=== PATIENT | male | born 1955 | race Caucasian/White ===

== ENCOUNTER 2017-03-22 12:53 | Inpatient (IN) | payer BC ==
--- NOTE | ~2017-03-22 | DS ---
Discharge Summary [facility] [address] [place]. [address] NAME: MELCHOR AVALOS : 55 STATUS : DIS IN PAT#: [id number] AGE: 61 ADM/REG DATE : 03/22/17 MR#: [id number] REPORT SERV DATE: 04/02/17 DICTATED BY: OMAYRA VILLALOBOS DATE: 04/01/17 REPORT STATUS : Draft TRANSCRIBED BY: MARYA DATE: 04/01/17 Data Collection from hospitalization DISCHARGE DIAGNOSES: 1. Cholecystitis. 2. Cholelithiasis. 3. Probable choledocholithiasis. 4. History of coronary artery disease. 5. Hypertension. 6. Gastroesophageal reflux disease. CONSULTATIONS: Dr. Klaus Montano. PROCEDURES PERFORMED: 1. CT of the abdomen and pelvis with and without contrast, 03/22/2017. 2. Laparoscopic cholecystectomy with intraoperative cholangiogram 03/23/2017. 3. ERCP 03/24/2017. 4. MRI of the abdomen without contrast, 03/25/2017. PATHOLOGY: Gallbladder cholecystectomy, diffuse acalculous lymphoplasmacytic chronic cholecystitis. MEDICATIONS: Aspirin 81 mg at bedtime, Tenormin 25 mg at bedtime, Prilosec 20 mg at bedtime, Pravachol 80 mg at bedtime, Artificial Tears one drop as needed, Gas-X 80 mg as needed. CONDITION AT DISCHARGE: Upon discharge, he did appear to be doing well and had no complaints. DISPOSITION: He had been discharged home to continue a clear liquid diet with activity as tolerated. He was to follow up with Dr. Jordan Naqvi as needed. Follow up with Dr. Onesimo Vitale in 7-10 days and follow up with myself in one week. HOSPITAL COURSE: This 61-year-old male had a 1 or 2 month history of bloating after eating. This had not really gotten much better, he stated that he had an acute episode of pain 2 days prior to admission with pain all across the lower part of his chest, upper part of his abdomen into his back, this resolved after 10 or 15 minutes, but he continued to have bloating, therefore he had presented to the emergency department to be evaluated. He was worked up and found to have notably elevated bilirubin at 3.3, as well as mildly elevated LFTs with a CT scan demonstrating stones in the gallbladder with some gallbladder wall thickening. In speaking with the patient, he really denied any pain, nausea, or vomiting, complaining mainly of this bloating that he speaks of. He lost approximately 7 pounds over the last two months as he had not been eating much. He also complained of dark coloration of his urine over the past 3 days. He denied any other complaints and was admitted for further evaluation and treatment. Upon admission to the hospital, he had been placed on an n.p.o. diet after midnight. He was begun on morphine at 2 mg IV every 4 hours as needed, Zofran 4 mg IV every 4 hours as needed, Zosyn 3.375 mg IV every 6 hours, heparin 5000 units subcutaneously every 8 hours. He had also been placed on IV fluids with normal saline at 50 mL/h. He did undergo a CT of the abdomen and pelvis with and without contrast on the day of Discharge [address] [place]. [address] NAME: MELCHOR AVALOS : 55 STATUS : DIS IN PAT#: [id number] AGE: 61 ADM/REG DATE : 03/22/17 MR#: [id number] REPORT SERV DATE: 04/02/17 DICTATED BY: OMAYRA VILLALOBOS DATE: 04/01/17 REPORT STATUS : Draft TRANSCRIBED BY: MARYA DATE: 04/01/17 admission. Following the day of admission, he had been taken to the operating room where he did undergo the above cholecystectomy. He had tolerated this well and was transferred to the recovery room. On postop day #1, he had been evaluated by Dr. Klaus Montano as there was concern for common bile duct stones and he discussed ERCP with the patient, the patient was agreeable with this, he did undergo the above ERCP later that same day. He tolerated this well and was transferred to the recovery room. On postop day #2, he did appear to be doing well and had no significant abdominal pain noted. It was, however, noted that he had failed the ERCP secondary to the ampulla being entirely within a diverticulum and we were unable to reach this with the scope and cannula, and was therefore undergo an MRCP and if this was positive for common bile duct stone, then he was to either undergo surgical common bile duct exploration or IR stone removal, this had been discussed with the patient, he was in agreement with this. His bilirubin was noted to be down to 1.6. He did undergo the above MRI of the abdomen, he had tolerated this well. On 03/26, he had no complaints, was afebrile, his bilirubin was at 1.3, alkaline phosphatase 147, AST 23. He did continue in stable condition and had no new complaints noted. Due to his stable condition, he was then discharged with the above instructions. Information collected by: Naeem Johnson. I submit the above information as my discharge summary. DERRICK/MARYA Omayra Villalobos M.D. / [id number] CC: MD MARRY Elena VINCENT C William M. Cooney, MD
--- NOTE | ~2017-03-22 | OP ---
Record Of Operation [facility] [address] [place]. [address] NAME: MELCHOR AVALOS : 55 STATUS : ADM IN [facility]#: [id number] AGE: 61 ADM/REG DATE : 03/22/17 MR#: [id number] REPORT SERV DATE: 03/23/17 DICTATED BY: OMAYRA CHRISTIE DATE: 03/23/17 REPORT STATUS : Draft TRANSCRIBED BY: MODL DATE: 03/23/17 DATE OF PROCEDURE: 03/23/2017 PREOPERATIVE DIAGNOSIS: Cholecystitis and cholelithiasis. POSTOPERATIVE DIAGNOSIS: Cholecystitis and cholelithiasis and probable choledocholithiasis. FINDINGS: The patient had an inflamed gallbladder, very thin walled and very inflamed. Operative cholangiogram showed initially no flow into the duodenum. The catheter was then threaded and then a second operative cholangiogram did show some flow of contrast in the duodenal. SUMMARY: After adequate general anesthesia, prep and drape, a supraumbilical incision was made, carried down the peritoneal cavity, under direct vision, a blunt port was placed. Abdomen insufflated. High-flow CO2 and the camera inserted. The previously noted findings were noted. Second, third, and fourth trocars were placed in the epigastric area and midclavicular line and right anterior axillary line. The lateral two ports were used to grasp the gallbladder. The gallbladder was noted to be very thin walled and distended. There was some leakage of bile. This was suctioned out. The cystic duct and cystic artery were dissected free from the surrounding tissue. The patient was noted to have a very long cystic duct. Two clips placed proximally, one distally on the cystic artery. A clip was placed distally on the cystic duct. The junction of the gallbladder and the cystic duct was identified. Arrow cholangiogram catheter was attempted to be placed. This was unsuccessful. This was then clipped more inferior and a second small incision made in the cystic duct. Catheter was placed in the cystic duct. X-ray showed good flow into the right and left hepatic ducts and into the common duct but there was no flow into the duodenum. At this point, the catheter was advanced into the duodenum and repeat cholangiogram was taken; however, this did not show good flow in the common duct. The cystic duct was noted to be very friable. This was then clipped too proximally and divided. Cystic artery divided and the gallbladder taken out in a retrograde fashion via the cautery unit. Good hemostasis was obtained using cautery unit with piece of Surgicel. Jazzy was placed across the gallbladder bed for further hemostasis. Drain brought out through a lateral trocar site, sutured in place with a 2-0 Prolene suture. The gallbladder having been placed in an Endopouch, brought beneath the supraumbilical port and brought out under direct vision. The other trocar was removed. No evidence any bleeding. CO2 was removed from the abdomen. The fascia was closed at the supraumbilical site with a running 0 Vicryl suture. Subcutaneous tissue and skin closed in routine fashion after injection of 0.5% Marcaine without. The patient tolerated the procedure well and taken to the recovery room in satisfactory condition. GINETTE/MARYA Omayra Christie M.D. Record Of [address] [address] NAME: MELCHOR AVALOS : 55 STATUS : ADM IN [facility]#: [id number] AGE: 61 ADM/REG DATE : 03/22/17 MR#: [id number] REPORT SERV DATE: 03/23/17 DICTATED BY: OMAYRA CHRISTIE DATE: 03/23/17 REPORT STATUS : Draft TRANSCRIBED BY: MARYA DATE: 03/23/17 / [id number] CC: MD CIARA Elena
--- NOTE | ~2017-03-22 | EGD ---
EGD REPORT [facility] [address] [place] [address] NAME: MELCHOR AVALOS : 55 STATUS : ADM IN PAT#: [id number] AGE: 61 ADM/REG DATE : 03/22/17 MR#: [id number] REPORT SERV DATE: 03/24/17 DICTATED BY: KLAUS RAMIREZ DATE: 03/24/17 REPORT STATUS : Draft TRANSCRIBED BY: [facility] DATE: 03/24/17 Endoscopy Center Patient Name: Melchor Avalos Date of : 1955 Attending MD: KLAUS RAMIREZ MD Procedure Date No Time: 03/24/2017 Procedure: ERCP Indications: Evaluation and possible treatment of bile duct stone(s) Medicines: Monitored Anesthesia Care Complications: No immediate complications. Estimated blood loss: None Procedure: After obtaining informed consent, the scope was passed under direct vision. Throughout the procedure, the patient's blood pressure, pulse, and oxygen saturations were monitored continuously. The TJF Q180V [id number] was introduced through the mouth, and advanced to the duodenum without successful cannulation. The ERCP was technically difficult and complex due to challenging cannulation because of intradiverticular papilla and challenging cannulation because of papillary stenosis. The patient tolerated the procedure well. Findings: A machine welt butter film of the abdomen was obtained. Surgical clips, consistent with previous cholecystectomy, were seen in the area of the right upper quadrant of the abdomen. The esophagus was successfully intubated under direct vision without detailed examination of the pharynx, larynx, and associated structures, and upper GI tract. The upper GI tract was grossly normal. The major papilla was located entirely within a diverticulum. The major papilla was small. Numerous attempts were made to cannulate the CBD over the course of more than 30 minutes, but the bile duct could not be cannulated with the short-nosed traction sphincterotome. The biliary orifice appeared stenotic, increasing the difficulty with cannulation. Due to inability to position the scope adequately and to reach the papilla, the endoscope was withdrawn from the patient. Impression: - The major papilla was located entirely within a diverticulum making engaging the papilla with the sphinctertome very difficult. 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 - Perform MRCP at the next available appointment. EGD REPORT [address] [place]. [address] NAME: MELCHOR AVALOS : 55 STATUS : ADM IN [facility]#: [id number] AGE: 61 ADM/REG DATE : 03/22/17 MR#: [id number] REPORT SERV DATE: 03/24/17 DICTATED BY: KLAUS RAMIREZ DATE: 03/24/17 REPORT STATUS : Draft TRANSCRIBED BY: [email or web address] DATE: 03/24/17 Procedure Code(s): --- Professional --- 04071, 52, Endoscopic retrograde cholangiopancreatography (ERCP); diagnostic, including collection of specimen(s) by brushing or washing, when performed (separate procedure) Diagnosis Code(s): --- Professional --- K80.50, Calculus of bile duct without cholangitis or cholecystitis without obstruction K83.9, Disease of biliary tract, unspecified K83.1, Obstruction of bile duct CPT copyright 2013 [employer]. All rights reserved. The codes documented in this report are preliminary and upon health information coder review may be revised to meet current compliance requirements. Klaus Ramirez MD KLAUS RAMIREZ MD 03/24/2017 5:50 PM This report has been signed electronically. Number of Addenda: 0 Note Initiated On: 03/24/2017 5:00 PM Scope Withdrawal Time 0 hours 0 minutes 0 seconds
--- NOTE | ~2017-03-22 | CN ---
Consultation Report [facility] [address] [place]. [address] NAME: MELCHOR AVALOS : 55 STATUS : ADM IN [facility]#: [id number] AGE: 61 ADM/REG DATE : 03/22/17 MR#: [id number] REPORT SERV DATE: 03/24/17 DICTATED BY: KLAUS RAMIREZ DATE: 03/24/17 REPORT STATUS : Draft TRANSCRIBED BY: MODL DATE: 03/24/17 INPATIENT CONSULT NOTE DATE OF CONSULTATION: 03/24/2017 REASON FOR CONSULTATION: Concern for common bile duct stones. HISTORY OF PRESENT ILLNESS: Mr. Avalos is a very pleasant 61-year-old male with no significant past medical history, who presented with complaints of upper abdominal pain that was postprandial in nature. The patient presented after an acute episode of pain several days prior to his admission, that resolved after approximately 10 to 15 minutes. When he came to the emergency room to be evaluated, he was noted to have an elevated bilirubin of 3.3 with other elevated LFTs and CT scan demonstrating stones in the gallbladder with gallbladder wall thickening. The patient underwent cholecystectomy on the day prior to this presentation, where he was found to have an inflamed gallbladder. Additionally cholangiogram was performed, where contrast was noted to fill the common bile duct and intrahepatic ducts, but no drainage into the duodenum until the catheter was passed down through the sphincter zone and into the duodenum itself. On the day of his procedure, his bilirubin was noted to be 1.6 and today after the procedure is noted to rise once again to 3.1. No nausea or vomiting today. Mild abdominal discomfort from his procedure yesterday, but otherwise no pain, no fevers, or chills. GI was consulted by the surgical team out of concerns about could common bile duct stones raised from the cholangiogram that was performed intraoperatively. REVIEW OF SYSTEMS: All systems reviewed and were negative aside from what was mentioned in the history of present illness. PAST MEDICAL HISTORY: 1. GERD. 2. Gallstones, status post cholecystectomy. 3. Coronary artery disease, status post prior stents. FAMILY HISTORY: No family history of GI related malignancy. SOCIAL HISTORY: The patient is a smoker, but denies any alcohol or illicit substance abuse. ALLERGIES: ROCEPHIN/CEFTRIAXONE. HOME MEDICATIONS: 1. Aspirin. 2. Atenolol. 3. Omeprazole. Consultation Report [facility] [address] [place]. [address] NAME: MELCHOR AVALOS : 55 STATUS : ADM IN PAT#: [id number] AGE: 61 ADM/REG DATE : 03/22/17 MR#: [id number] REPORT SERV DATE: 03/24/17 DICTATED BY: KLAUS RAMIREZ DATE: 03/24/17 REPORT STATUS : Draft TRANSCRIBED BY: MODL DATE: 03/24/17 4. Pravastatin. 5. Gas-X. PHYSICAL EXAMINATION: VITAL SIGNS: Most recent vital signs include a temperature of 98.5, a blood pressure of 125/64, pulse of 66, saturating 95% on room air, T-max over the past 24 hours was 99.5. HEENT: The patient's head was normocephalic, atraumatic. Normal inspection of the oral mucosa with moist mucous membranes. Sclerae are nonicteric. Pupils are equal and round. NECK: Supple without lymphadenopathy. HEART: Rate is regular with normal S1, S2. LUNGS: Sounds are clear to auscultation bilaterally without wheezes, rales, or rhonchi. ABDOMEN: Soft, nontender, nondistended with normoactive bowel sounds. EXTREMITIES: The patient had no cyanosis, clubbing, or edema. No jaundice or rash. No gross motor deficits. He is alert and oriented. Mood and affect are appropriate. Judgment appears to be intact. LABORATORY STUDIES: Most recent laboratory results include a CBC that shows an increase in the patient's white count to 12.7 today, hemoglobin is 14.3, and platelet count of a 103,000. Comprehensive metabolic panel was unremarkable aside from elevated LFTs with a bilirubin of 3.1, alkaline phosphatase of 170, ALT of 172, and AST of 81, amylase was normal at 24. IMAGING: The patient had a CT of the abdomen and pelvis without contrast, when he was first admitted, which was reviewed personally by myself. There was evidence of stones within the gallbladder and question of inflammation around the gallbladder. There was no suggestion of any intrahepatic or extrahepatic biliary dilatation. No suggestion of CBD dilatation. ASSESSMENT AND PLAN: Mr. Avalos is a very pleasant 61-year-old male with no significant past medical history, who presented with cholecystitis and underwent cholecystectomy on the day prior to this consultation. He was found on cholangiogram to have lack of filling into the duodenum until a catheter was passed through that area suggesting potential blockage. The patient also has a rise in his bilirubin level today compared to yesterday suggesting that there may be obstructing choledocholithiasis. We will perform an ERCP to relieve any sludge stones or other debris that may be causing blockage and symptoms. Thank you very much for this interesting consult. Please call with any questions or concerns you may have. Summer/MARYA Klaus Ramirez MD Consultation Report [address] [address] NAME: MELCHOR AVALOS : 55 STATUS : ADM IN [facility]#: [id number] AGE: 61 ADM/REG DATE : 03/22/17 MR#: [id number] REPORT SERV DATE: 03/24/17 DICTATED BY: KLAUS RAMIREZ DATE: 03/24/17 REPORT STATUS : Draft TRANSCRIBED BY: MARYA DATE: 03/24/17 / [id number] CC: MD Onesimo Elena MD
--- NOTE | ~2017-03-22 | HP ---
History And Physical [facility] [address] [place]. [address] NAME: MELCHOR AVALOS : 55 STATUS : ADM IN [facility]#: [id number] AGE: 61 ADM/REG DATE : 03/22/17 MR#: [id number] REPORT SERV DATE: 03/23/17 DICTATED BY: ARANZA CHRISTIANSON DATE: 03/22/17 REPORT STATUS : Draft TRANSCRIBED BY: MODAngella DATE: 03/22/17 DATE OF ADMISSION: 03/22/2017 REPORT TITLE: Surgical H and P. REASON FOR CONSULT: Abdominal discomfort, possible common bile duct stone. HISTORY OF PRESENT ILLNESS: This is a 61-year-old male who has had one or two months of bloating after eating. This has not really gotten much better. He states he had an acute episode of pain two days ago with pain all across the lower part of his chest, upper part of his abdomen into his back. This resolved after 10 or 15 minutes, but he has continued to have bloating; therefore, he came to the emergency department to be evaluated. He was worked up and found to have notably elevated bilirubin of 3.3 as well as mildly elevated LFTs with a CT scan demonstrating stones in the gallbladder with some gallbladder wall thickening. In speaking with the patient, he really denies any pain, nausea, or vomiting; complaining mainly of this bloating that he speaks of. He has lost approximately 7 pounds over the past 2 months as he has not been eating as much. Also, complains of dark coloration of his urine over the past 3 days. Denies any other complaints at this time. PAST MEDICAL HISTORY: Significant for some acid reflux as well as coronary artery disease. PAST SURGICAL HISTORY: Coronary artery bypass in 2005, subsequent heart stents, and umbilical hernia repair earlier this year. HOME MEDICATIONS: Include aspirin, atenolol, omeprazole, pravastatin, and Gas-X. ALLERGIES: INCLUDE ROCEPHIN WHICH HE STATES MADE HIM ACT ABNORMALLY. FAMILY HISTORY: Significant for diabetes. SOCIAL HISTORY: The patient smokes and currently is cutting down, currently half a pack a day. REVIEW OF SYSTEMS: A comprehensive review of symptoms is performed and is negative other than in the HPI. PHYSICAL EXAMINATION: GENERAL: This is a 61-year-old male, looks his stated age, in no acute distress. VITAL SIGNS: Temperature 98, blood pressure 135/66, heart rate 70, respiratory rate 16, O2 saturation 99% on room air. NEURO: The patient is alert and oriented x3. No focal sensory or motor deficits. HEENT: The patient is normocephalic. Head is atraumatic. Pupils equally round and reactive to light. Some mild scleral icterus noted. NECK: Soft, supple. Trachea is midline. HEART: Regular rate and rhythm. No murmurs, gallops, or rubs. CHEST: Clear to auscultation bilaterally. No rhonchi. No wheezes. There is a midline History And Physical [address] [place]. [address] NAME: MELCHOR AVALOS : 55 STATUS : ADM IN [facility]#: [id number] AGE: 61 ADM/REG DATE : 03/22/17 MR#: [id number] REPORT SERV DATE: 03/23/17 DICTATED BY: ARANZA CHRISTIANSON DATE: 03/22/17 REPORT STATUS : Draft TRANSCRIBED BY: MARYA DATE: 03/22/17 surgical scar. ABDOMEN: Soft, nondistended, nontender. Positive bowel sounds. Evidence of previous umbilical hernia repair seen around the umbilicus. EXTREMITIES: The patient moves all extremities. LABORATORY DATA: White count 8.8, hemoglobin 15.3, hematocrit 43.6, platelets 109. Sodium 136, potassium 3.9, chloride 103, CO2 of 25, BUN 19, creatinine 1.15, glucose 106. Total bilirubin 3.3 with a direct component of 2 and indirect component of 1.3. Alkaline phosphatase 177, ALT 242, AST 80, lipase 138. ASSESSMENT AND PLAN: This is a 61-year-old male with choledocholithiasis. Plan to admit the patient to hospital. We will make n.p.o. after midnight. We will request GI to see. Follow labs in the morning. If labs trending up, may need ERCP prior to lap harika; otherwise, may proceed with lap harika. This has been discussed with Dr. Christianson, who agrees to this plan and who saw the patient with me. DICTATED BY: MD JOYCELYN Argueta/MARYA Aranza Christianson MD / [id number] CC: MD MARRY Elena VINCENT C
[2017-03-22 12:35] LABS: BASOPHILS 0.1 %; BASOPHILS ABSOLUTE 0.01 10/3/uL (0.0-0.16); EOSINOPHILS 0.6 %; EOSINOPHILS ABSOLUTE 0.05 10/3/uL (0.0-0.53); HEMATOCRIT 43.6 % (40.0-51.0); HEMOGLOBIN 15.3 g/dL (13.6-17.8); IMMATURE GRANULOCYTES 0.2 %; IMMATURE GRANULOCYTES ABSOLUTE 0.02 10/3/uL (0.0-0.11); LYMPHOCYTES 9.9 %; LYMPHOCYTES ABSOLUTE 0.87 10/3/uL (0.67-4.30); MEAN CORPUS HGB CONC 35.1 g/dL (32.0-36.0); MEAN CORPUSCULAR HEMOGLOB 33.3 pg (26.0-34.0); MEAN CORPUSCULAR VOLUME 94.8 fL (80-100); MEAN PLATELET VOLUME 11.6 fL (9.2-13.0); MONOCYTES 11.4 %; MONOCYTES ABSOLUTE 1.01 10/3/uL (0.21-1.20); NEUTROPHILS 77.8 %; NEUTROPHILS ABSOLUTE 6.87 10/3/uL (2.02-8.40); PLATELET COUNT 109 10/3/uL (150-400); RBC DISTRIBUTION WIDTH 13.8 % (12.0-16.0); WHITE BLOOD CELLS 8.8 10/3/uL (4.5-10.5)
[2017-03-22 12:36] LABS: MANUAL DIFF NO %
[2017-03-22 12:47] LABS: ALBUMIN 3.8 G/DL (3.5-5.0); CALCIUM, SERUM 9.7 MG/DL (8.5-10.4); CHLORIDE, SERUM 103 MMOL/L (96-112); CREATININE 1.15 MG/DL (0.70-1.30); GFR AFRICAN AMERICAN 79 ML/MIN (>=60); GFR NON AFRICAN AMERICAN 68 ML/MIN (>=60); GLUCOSE, SERUM 106 MG/DL (60-99); POTASSIUM, SERUM 3.9 MMOL/L (3.5-5.3); SGOT(AST) 80 U/L (5-40); SGPT(ALT) 242 U/L (5-65); SODIUM, SERUM 136 MMOL/L (135-148); TOTAL PROTEIN 7.8 G/DL (6.0-8.5)
[2017-03-22 12:48] LABS: ASCORBIC ACID (UR NOT ORDER) NEG (NEG); BILIRUBIN, URINE NEGATIVE (NEG); ER URINALYSIS TAT 0 Hrs 11 Mins; KETONE, URINE 20 MG/DL (NEG); LEUKOCYTE ESTERASE(NOT OR NEG (NEG); NITRITE (URINE) NEG (NEG); WBC (NOT ORDERED) (RFLEX) 2 (0-5)
[2017-03-22 12:52] LABS: ALKALINE PHOSPHATASE 177 U/L (45-117); BUN (BLOOD UREA NITROGEN) 19 MG/DL (6-23); CO2 (CARBON DIOXIDE) 25 MMOL/L (24-34); INDIRECT BILIRUBIN(NOT ORDER) 1.3 MG/DL (0.1-0.9); TOTAL BILIRUBIN 3.3 MG/DL (0-1.2)
[~2017-03-22 12:53] MED LIST: ASAB PO; ATEN25 PO; PRAVACHOL80 MG PO; PRILO PO
[2017-03-22 13:12] LABS: TROPONIN I <0.02 NG/ML (<0.05)
[2017-03-22] MEDS ORDERED: HALF81 PO (17:20)
[2017-03-22] MEDS ORDERED: PRILO PO (17:20)
[2017-03-22] MEDS ORDERED: ATEN25 PO (17:20)
[2017-03-22] MEDS ORDERED: PRAVACHOL80 MG PO (17:20)
[2017-03-22] MEDS ORDERED: TEARS PLUS OPH (17:21)
[2017-03-22] MEDS ORDERED: MYTAB GAS80 MG PO (17:21)
[2017-03-23 06:03] LABS: BASOPHILS 0.2 %; BASOPHILS ABSOLUTE 0.01 10/3/uL (0.0-0.16); EOSINOPHILS 1.4 %; EOSINOPHILS ABSOLUTE 0.08 10/3/uL (0.0-0.53); HEMATOCRIT 41.2 % (40.0-51.0); HEMOGLOBIN 14.5 g/dL (13.6-17.8); IMMATURE GRANULOCYTES 0.2 %; IMMATURE GRANULOCYTES ABSOLUTE 0.01 10/3/uL (0.0-0.11); LYMPHOCYTES 17.9 %; LYMPHOCYTES ABSOLUTE 1.01 10/3/uL (0.67-4.30); MEAN CORPUS HGB CONC 35.2 g/dL (32.0-36.0); MEAN CORPUSCULAR HEMOGLOB 33.2 pg (26.0-34.0); MEAN CORPUSCULAR VOLUME 94.3 fL (80-100); MEAN PLATELET VOLUME 12.2 fL (9.2-13.0); MONOCYTES 13.8 %; MONOCYTES ABSOLUTE 0.78 10/3/uL (0.21-1.20); NEUTROPHILS 66.5 %; NEUTROPHILS ABSOLUTE 3.75 10/3/uL (2.02-8.40); PLATELET COUNT 140 10/3/uL (150-400); RBC DISTRIBUTION WIDTH 13.7 % (12.0-16.0); RED CELL COUNT 4.37 10/6/uL (4.7-6.1); WHITE BLOOD CELLS 5.6 10/3/uL (4.5-10.5)
[2017-03-23 06:06] LABS: MANUAL DIFF NO %
[2017-03-23 06:16] LABS: ALBUMIN 3.4 G/DL (3.5-5.0); BUN (BLOOD UREA NITROGEN) 17 MG/DL (6-23); CALCIUM, SERUM 8.9 MG/DL (8.5-10.4); CHLORIDE, SERUM 105 MMOL/L (96-112); CO2 (CARBON DIOXIDE) 26 MMOL/L (24-34); CREATININE 1.07 MG/DL (0.70-1.30); GFR AFRICAN AMERICAN 86 ML/MIN (>=60); GFR NON AFRICAN AMERICAN 75 ML/MIN (>=60); PHOSPHORUS, SERUM 2.5 MG/DL (2.5-4.5); SGPT(ALT) 172 U/L (5-65); SODIUM, SERUM 139 MMOL/L (135-148)
[2017-03-23 06:18] LABS: GLUCOSE, SERUM 132 MG/DL (60-99)
[2017-03-23 06:19] LABS: ALKALINE PHOSPHATASE 154 U/L (45-117); DIRECT BILIRUBIN 0.6 MG/DL (0.0-0.4); SGOT(AST) 49 U/L (5-40); TOTAL BILIRUBIN 1.6 MG/DL (0-1.2)
[2017-03-24 06:23] LABS: BASOPHILS 0 %; EOSINOPHILS 0 %; HEMATOCRIT 41.6 % (40.0-51.0); HEMOGLOBIN 14.3 g/dL (13.6-17.8); IMMATURE GRANULOCYTES 0.2 %; IMMATURE GRANULOCYTES ABSOLUTE 0.03 10/3/uL (0.0-0.11); LYMPHOCYTES 3.4 %; LYMPHOCYTES ABSOLUTE 0.43 10/3/uL (0.67-4.30); MEAN CORPUS HGB CONC 34.4 g/dL (32.0-36.0); MEAN CORPUSCULAR HEMOGLOB 32.4 pg (26.0-34.0); MEAN CORPUSCULAR VOLUME 94.1 fL (80-100); MONOCYTES 11.8 %; NEUTROPHILS 84.6 %; NEUTROPHILS ABSOLUTE 10.78 10/3/uL (2.02-8.40); PLATELET COUNT 103 10/3/uL (150-400); RBC DISTRIBUTION WIDTH 14.1 % (12.0-16.0); RED CELL COUNT 4.42 10/6/uL (4.7-6.1); WHITE BLOOD CELLS 12.7 10/3/uL (4.5-10.5)
[2017-03-24 06:24] LABS: MANUAL DIFF NO %
[2017-03-24 06:33] LABS: A/G RATIO 0.9 (0.7-1.9); CALCIUM, SERUM 8.8 MG/DL (8.5-10.4); CHLORIDE, SERUM 105 MMOL/L (96-112); CO2 (CARBON DIOXIDE) 24 MMOL/L (24-34); GFR AFRICAN AMERICAN 84 ML/MIN (>=60); GFR NON AFRICAN AMERICAN 72 ML/MIN (>=60); GLOBULIN 3.4 G/DL (2.5-4.1); GLUCOSE, SERUM 157 MG/DL (60-99); POTASSIUM, SERUM 4.1 MMOL/L (3.5-5.3); SGOT(AST) 81 U/L (5-40); SGPT(ALT) 172 U/L (5-65); SODIUM, SERUM 138 MMOL/L (135-148); TOTAL PROTEIN 6.4 G/DL (6.0-8.5)
[2017-03-24 06:36] LABS: ALKALINE PHOSPHATASE 170 U/L (45-117); BUN (BLOOD UREA NITROGEN) 13 MG/DL (6-23); DIRECT BILIRUBIN 1.8 MG/DL (0.0-0.4); INDIRECT BILIRUBIN(NOT ORDER) 1.3 MG/DL (0.1-0.9); TOTAL BILIRUBIN 3.1 MG/DL (0-1.2)
[2017-03-24 06:49] LABS: PLATELET ESTIMATE SLT DEC (ADEQUATE)
[2017-03-25 08:23] LABS: BASOPHILS 0.1 %; BASOPHILS ABSOLUTE 0.01 10/3/uL (0.0-0.16); EOSINOPHILS 0.1 %; EOSINOPHILS ABSOLUTE 0.01 10/3/uL (0.0-0.53); HEMATOCRIT 40.1 % (40.0-51.0); HEMOGLOBIN 13.9 g/dL (13.6-17.8); IMMATURE GRANULOCYTES 0.6 %; IMMATURE GRANULOCYTES ABSOLUTE 0.08 10/3/uL (0.0-0.11); LYMPHOCYTES 7.3 %; LYMPHOCYTES ABSOLUTE 1.01 10/3/uL (0.67-4.30); MEAN CORPUS HGB CONC 34.7 g/dL (32.0-36.0); MEAN CORPUSCULAR HEMOGLOB 33.6 pg (26.0-34.0); MEAN CORPUSCULAR VOLUME 96.9 fL (80-100); MEAN PLATELET VOLUME 11.2 fL (9.2-13.0); MONOCYTES 8.6 %; MONOCYTES ABSOLUTE 1.19 10/3/uL (0.21-1.20); NEUTROPHILS 83.3 %; NEUTROPHILS ABSOLUTE 11.46 10/3/uL (2.02-8.40); PLATELET COUNT 114 10/3/uL (150-400); RBC DISTRIBUTION WIDTH 14.4 % (12.0-16.0); RED CELL COUNT 4.14 10/6/uL (4.7-6.1); WHITE BLOOD CELLS 13.8 10/3/uL (4.5-10.5)
[2017-03-25 08:25] LABS: MANUAL DIFF NO %
[2017-03-25 08:39] LABS: ALBUMIN 2.9 G/DL (3.5-5.0); DIRECT BILIRUBIN 0.9 MG/DL (0.0-0.4); INDIRECT BILIRUBIN(NOT ORDER) 0.7 MG/DL (0.1-0.9); TOTAL BILIRUBIN 1.6 MG/DL (0-1.2); TOTAL PROTEIN 6.5 G/DL (6.0-8.5)
[2017-03-26 10:55] LABS: ALBUMIN 2.8 G/DL (3.5-5.0); INDIRECT BILIRUBIN(NOT ORDER) 0.6 MG/DL (0.1-0.9); TOTAL BILIRUBIN 1.3 MG/DL (0-1.2); TOTAL PROTEIN 6.6 G/DL (6.0-8.5)
[2017-03-26 10:58] LABS: DIRECT BILIRUBIN 0.7 MG/DL (0.0-0.4)
== END 2017-03-26 18:00 | disposition home or self-care (01) | DRG 419 ==
LOC: ER 12:53 → 4SO 19:59
PROVIDERS: Emergency Medicine; Internal Medicine Gastroenterology; Nurse Practitioner Family; Specialist
DX: K80.11 Calculus of gallbladder with chronic cholecystitis with obstruction (principal); K80.50 Calculus of bile duct without cholangitis or cholecystitis without obstruction; F17.200 Nicotine dependence, unspecified, uncomplicated; K21.9 Gastro-esophageal reflux disease without esophagitis; I25.10 Atherosclerotic heart disease of native coronary artery without angina pectoris; Z95.1 Presence of aortocoronary bypass graft; Z95.5 Presence of coronary angioplasty implant and graft; Z88.1 Allergy status to other antibiotic agents; Z79.82 Long term (current) use of aspirin; K83.9 Disease of biliary tract, unspecified
CPT/HCPCS: 74178; 74181; 74300; 74330; 76000; 80053; 80069; 80076; 81001; 82150; 82248; 83690; 84484; 85025; 88304; 93005; 99285; A9270-GY; C1769; J1610; J2250; J2405; J2543; J2710; J3010; Q9967

== ENCOUNTER 2017-05-23 13:31 | Emergency (ER) | payer BC ==
[2017-05-23 12:12] LABS: BASOPHILS 0.2 %; BASOPHILS ABSOLUTE 0.01 10/3/uL (0.0-0.16); EOSINOPHILS 1.3 %; EOSINOPHILS ABSOLUTE 0.07 10/3/uL (0.0-0.53); HEMATOCRIT 45.8 % (40.0-51.0); HEMOGLOBIN 15.7 g/dL (13.6-17.8); IMMATURE GRANULOCYTES 0.4 %; IMMATURE GRANULOCYTES ABSOLUTE 0.02 10/3/uL (0.0-0.11); LYMPHOCYTES 18.7 %; LYMPHOCYTES ABSOLUTE 1.03 10/3/uL (0.67-4.30); MEAN CORPUS HGB CONC 34.3 g/dL (32.0-36.0); MEAN CORPUSCULAR HEMOGLOB 33.1 pg (26.0-34.0); MEAN CORPUSCULAR VOLUME 96.4 fL (80-100); MEAN PLATELET VOLUME 10.7 fL (9.2-13.0); MONOCYTES 7.1 %; MONOCYTES ABSOLUTE 0.39 10/3/uL (0.21-1.20); NEUTROPHILS 72.3 %; RED CELL COUNT 4.75 10/6/uL (4.7-6.1)
[2017-05-23 12:13] LABS: ER CBC TAT 0 Hrs 07 Mins; MANUAL DIFF NO %; PLATELET COUNT 144 10/3/uL (150-400); WHITE BLOOD CELLS 5.5 10/3/uL (4.5-10.5)
[2017-05-23 12:24] LABS: ASCORBIC ACID (UR NOT ORDER) NEG (NEG); BILIRUBIN, URINE NEGATIVE (NEG); ER URINALYSIS TAT 0 Hrs 18 Mins; KETONE, URINE NEGATIVE (NEG); LEUKOCYTE ESTERASE(NOT OR NEG (NEG); NITRITE (URINE) NEG (NEG); WBC (NOT ORDERED) (RFLEX) 1 (0-5)
[2017-05-23 12:30] LABS: A/G RATIO 1.1 (0.7-1.9); ALKALINE PHOSPHATASE 303 U/L (45-117); BUN (BLOOD UREA NITROGEN) 12 MG/DL (6-23); CALCIUM, SERUM 9.6 MG/DL (8.5-10.4); CHLORIDE, SERUM 103 MMOL/L (96-112); CO2 (CARBON DIOXIDE) 28 MMOL/L (24-34); CREATININE 1.09 MG/DL (0.70-1.30); GFR AFRICAN AMERICAN 84 ML/MIN (>=60); GFR NON AFRICAN AMERICAN 73 ML/MIN (>=60); GLOBULIN 3.7 G/DL (2.5-4.1); GLUCOSE, SERUM 130 MG/DL (60-99); POTASSIUM, SERUM 3.6 MMOL/L (3.5-5.3); SGOT(AST) 60 U/L (5-40); SGPT(ALT) 135 U/L (5-65); SODIUM, SERUM 138 MMOL/L (135-148); TOTAL BILIRUBIN 1.2 MG/DL (0-1.2); TOTAL PROTEIN 7.7 G/DL (6.0-8.5)
[2017-05-23 12:35] LABS: LACTATE 1.9 MMOL/L (0.3-2.4)
[2017-05-23 12:58] LABS: PROCALCITONIN 0.12 ng/mL (<0.5)
[~2017-05-23 13:31] MED LIST changes: +HALF81 PO; +MYTAB GAS80 MG PO; +TEARS PLUS OPH
== END 2017-05-23 13:43 | disposition home or self-care (01) ==
LOC: ER 13:31
PROVIDERS: Emergency Medicine
DX: K80.50 Calculus of bile duct without cholangitis or cholecystitis without obstruction (principal); Z95.1 Presence of aortocoronary bypass graft; Z95.5 Presence of coronary angioplasty implant and graft; F17.200 Nicotine dependence, unspecified, uncomplicated; Z88.8 Allergy status to other drugs, medicaments and biological substances; Z79.82 Long term (current) use of aspirin; Z79.899 Other long term (current) drug therapy
CPT/HCPCS: 71020; 74176; 80053; 81001; 83605; 83690; 84145; 85025; 99284

== ENCOUNTER 2017-05-25 08:29 | Day surgery (SDC) | payer BC ==
--- NOTE | ~2017-05-25 | EGD ---
EGD REPORT [facility] [address] [id number] NAME: MELCHOR AVALOS : 55 STATUS : REG [facility] [place] PAT#: [id number] AGE: 61 ADM/REG DATE : 05/25/17 MR#: [id number] REPORT SERV DATE: 05/25/17 DICTATED BY: EREN HOFFMANN DATE: 05/25/17 REPORT STATUS : Draft TRANSCRIBED BY: [employer] DATE: 05/25/17 [facility] Patient Name: Melchor Avalos Date of : 1955 Attending MD: EREN HOFFMANN, Procedure Date No Time: 05/25/2017 Procedure: ERCP Indications: Ascending cholangitis Referring MD: Casey Watson MD, RIVERA RICKS III, MD Medicines: General Anesthesia Complications: No immediate complications. Estimated blood loss: None Procedure: Pre-Anesthesia Assessment: - ASA Grade Assessment: III - A patient with severe systemic disease. After obtaining informed consent, the scope was passed under direct vision. Throughout the procedure, the patient's blood pressure, pulse, and oxygen saturations were monitored continuously. The Duodenoscope was introduced through the mouth, and advanced to the duodenum and used to inject contrast into the bile duct. The ERCP was accomplished without difficulty. The patient tolerated the procedure well. Findings: The major papilla was normal. The bile duct was deeply cannulated with the short-nosed traction sphincterotome. Contrast was injected. I personally interpreted the bile duct images. Ductal flow of contrast was adequate. The lower third of the main bile duct contained one stone, which was 8 mm in diameter. The main bile duct was diffusely dilated. The largest diameter was 10 mm. Biliary sphincterotomy was made with a traction (standard) sphincterotome using ERBE electrocautery. There was no post-sphincterotomy bleeding. The biliary tree was swept with a 12 mm balloon starting at the upper third of the main bile duct. One stone was removed. No stones remained. Impression: - The major papilla appeared normal. - The entire main bile duct was dilated. - Choledocholithiasis was found. Complete removal was accomplished by biliary sphincterotomy and balloon extraction. Recommendation: - Return to previous diet. - Continue present medications. - Return to referring physician. EGD REPORT [address] [address] NAME: MELCHOR AVALOS : 55 STATUS : REG [facility]#: [id number] AGE: 61 ADM/REG DATE : 05/25/17 MR#: [id number] REPORT SERV DATE: 05/25/17 DICTATED BY: EREN HOFFMANN DATE: 05/25/17 REPORT STATUS : Draft TRANSCRIBED BY: [employer] DATE: 05/25/17 Procedure Code(s): --- Professional --- 83510, Endoscopic retrograde cholangiopancreatography (ERCP); with removal of calculi/debris from biliary/pancreatic duct(s) 88648, Endoscopic retrograde cholangiopancreatography (ERCP); with sphincterotomy/papillotomy Diagnosis Code(s): --- Professional --- K80.30, Calculus of bile duct with cholangitis, unspecified, without obstruction 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 All rights reserved. The codes documented in this report are preliminary and upon sales order clerk review may be revised to meet current compliance requirements. EREN HOFFMANN, 05/25/2017 1:38 PM Number of Addenda: 0 Note Initiated On: 05/25/2017 7:57 AM Scope Withdrawal Time 0 hours 0 minutes 0 seconds [address] [id number]
[2017-05-25 09:04] LABS: BUN (BLOOD UREA NITROGEN) 17 MG/DL (6-23); CALCIUM, SERUM 9.5 MG/DL (8.5-10.4); CHLORIDE, SERUM 107 MMOL/L (96-112); CO2 (CARBON DIOXIDE) 30 MMOL/L (24-34); CREATININE 1.02 MG/DL (0.70-1.30); GFR AFRICAN AMERICAN 92 ML/MIN (>=60); GFR NON AFRICAN AMERICAN 79 ML/MIN (>=60); GLUCOSE, SERUM 143 MG/DL (60-99); SODIUM, SERUM 142 MMOL/L (135-148)
== END 2017-05-25 17:26 | disposition home or self-care (01) ==
LOC: DMU 08:29
PROVIDERS: Anesthesiology; Internal Medicine Gastroenterology
PROC: 0FC98ZZ Extirpation of Matter from Common Bile Duct, Via Natural or Artificial Opening Endoscopic (ICD-10-PCS; principal; 2017-05-25 09:30)
PROC: 0F798ZZ Dilation of Common Bile Duct, Via Natural or Artificial Opening Endoscopic (ICD-10-PCS; 2017-05-25 09:30)
DX: K80.30 Calculus of bile duct with cholangitis, unspecified, without obstruction (principal); K83.8 Other specified diseases of biliary tract; I10 Essential (primary) hypertension; I25.10 Atherosclerotic heart disease of native coronary artery without angina pectoris; G47.33 Obstructive sleep apnea (adult) (pediatric); Z88.1 Allergy status to other antibiotic agents; Z79.82 Long term (current) use of aspirin; Z79.899 Other long term (current) drug therapy
CPT/HCPCS: 74330; 80048; 93005; C1769; J0330; J2250; J3010; Q9967